=== PATIENT | male | born 1970 | race American Indian/Alaskan Native ===

== ENCOUNTER 2019-04-02 09:57 | Inpatient (IN) | payer SELFPAY ==
[2019-04-02] MEDS ORDERED: MORPHINE IV ONE (10:35)
[2019-04-02] MEDS ORDERED: NACL 0.9% 1000 ML 1,000 ML IV ONE (10:35)
[2019-04-02] MEDS ORDERED: PROTONIX IV ONE (10:35)
[2019-04-02] MEDS ORDERED: ZOFRAN IV ONE (10:35)
--- NOTE | 2019-04-02 10:39 | Emergency Department Report ---
ED Abdominal Pain HPI - General Chief Complaint: Abdominal Pain Stated Complaint: ABD PAIN Time Seen by Provider: 04/02/19 10:27 Source: patient Mode of arrival: Stretcher Limitations: No Limitations - History of Present Illness Initial Comments: 48-year-old male with upper quadrant abdominal pain since Tuesday. He stated it was postprandial on Tuesday. On Tuesday the pain improved. However this morning he was afraid to eat again as this exacerbated his pain. He did vomit. He states the pain is sharp and essentially in the left upper quadrant of the abdomen. He has not had pain like this before. He does drink alcohol but does not associate the pain with that. He's had no fever or chills. He states this had some diarrhea. Review of previous records indicates that the patient had a left heart cath with findings of a completely occluded RCA. He does have a dyslipidemia. He takes medicine for that and hypertension. MD Complaint: abdominal pain -: Gradual, days(s) Location: LUQ Radiation: none Migration to: no migration Severity: moderate Quality: sharp Consistency: constant Improves With: nothing Worsens With: eating Associated Symptoms: nausea, vomiting, diarrhea. denies: fever, chills, constipation, dysuria, hematemesis, hematochezia, melena, hematuria, anorexia, syncope - Related Data Home Medications Medication Instructions Recorded Confirmed Last Taken Omeprazole [PriLOSEC] 20 mg PO QDAY 02/18/15 02/18/15 11/20/14 Previous Rx's Medication Instructions Recorded Last Taken Type Aspirin EC 81 mg PO QDAY tablet 02/20/15 Unknown Rx Metoprolol [Lopressor TAB] 0.5 tab PO BID #30 tablet 02/20/15 Unknown Rx Clopidogrel [Plavix] 75 mg PO QDAY #30 tablet 02/21/15 Unknown Rx Lisinopril/Hydrochlorothiazide 1 each PO DAILY #30 tablet 02/21/15 Unknown Rx [Zestoretic 10-12.5 mg] Pravastatin [Pravachol] 40 mg PO QHS #30 tablet 02/21/15 Unknown Rx Allergies Allergy/AdvReac Type Severity Reaction Status Date / Time No Known Allergies Allergy Unverified 02/18/15 06:59 ED Review of Systems ROS: Stated complaint: ABD PAIN Other details as noted in HPI Constitutional: denies: chills, fever Eyes: denies: eye pain, eye discharge, vision change ENT: denies: ear pain, throat pain Respiratory: denies: cough, shortness of breath, wheezing Cardiovascular: denies: chest pain, palpitations Endocrine: no symptoms reported Gastrointestinal: as per HPI, abdominal pain, nausea, vomiting, diarrhea Genitourinary: denies: urgency, dysuria Musculoskeletal: denies: back pain, joint swelling, arthralgia Skin: denies: rash, lesions Neurological: denies: headache, weakness, paresthesias Psychiatric: denies: anxiety, depression Hematological/Lymphatic: denies: easy bleeding, easy bruising ED Past Medical Hx - Past Medical History Previous Medical History?: Yes Hx Hypertension: Yes Hx Congestive Heart Failure: No Hx Diabetes: No Hx GERD: Yes Hx Asthma: No Hx COPD: No - Surgical History Past Surgical History?: No - Social History Smoking Status: Current Every Day Smoker Substance Use Type: Alcohol - Medications Home Medications: Home Medications Medication Instructions Recorded Confirmed Last Taken Type Omeprazole [PriLOSEC] 20 mg PO QDAY 02/18/15 02/18/15 11/20/14 History Aspirin EC 81 mg PO QDAY tablet 02/20/15 Unknown Rx Metoprolol [Lopressor TAB] 0.5 tab PO BID #30 tablet 02/20/15 Unknown Rx Clopidogrel [Plavix] 75 mg PO QDAY #30 tablet 02/21/15 Unknown Rx Lisinopril/Hydrochlorothiazide 1 each PO DAILY #30 tablet 02/21/15 Unknown Rx [Zestoretic 10-12.5 mg] Pravastatin [Pravachol] 40 mg PO QHS #30 tablet 02/21/15 Unknown Rx ED Physical Exam - General Limitations: No Limitations General appearance: alert, other (looks uncomfortable) - Head Head exam: Present: atraumatic, normocephalic - Eye Eye exam: Present: normal appearance, PERRL. Absent: scleral icterus - ENT ENT exam: Present: mucous membranes moist - Neck Neck exam: Present: normal inspection - Respiratory Respiratory exam: Present: normal lung sounds bilaterally. Absent: respiratory distress - Cardiovascular Cardiovascular Exam: Present: regular rate, normal rhythm. Absent: systolic murmur, diastolic murmur, rubs, gallop - GI/Abdominal GI/Abdominal exam: Present: soft, tenderness (mildly in the left upper quadrant), normal bowel sounds. Absent: distended, guarding, rebound, rigid, organomegaly, mass, bruit, pulsatile mass, hernia - Rectal Rectal exam: Present: deferred - Extremities Exam Extremities exam: Present: normal inspection - Back Exam Back exam: Present: normal inspection - Neurological Exam Neurological exam: Present: alert, oriented X3, CN II-XII intact. Absent: motor sensory deficit - Psychiatric Psychiatric exam: Present: normal affect, normal mood - Skin Skin exam: Present: warm, dry, intact, normal color. Absent: rash ED Course Vital Signs 04/02/19 10:13 Temperature 98.0 F Pulse Rate 94 H Respiratory 18 Rate Blood Pressure 125/80 O2 Sat by Pulse 98 Oximetry ED Medical Decision Making - Lab Data Result diagrams: 04/02/19 10:30 04/02/19 10:30 Laboratory Results - last 24 hr 04/02/19 04/02/19 10:30 10:30 WBC 6.5 RBC 4.12 Hgb 14.3 Hct 40.7 MCV 99 H MCH 35 H MCHC 35 H RDW 12.2 L Plt Count 227 Lymph % (Auto) 8.2 L [place] % (Auto) 11.0 H Eos % (Auto) 0.8 Baso % (Auto) 0.4 Lymph # 0.5 L [place] # 0.7 Eos # 0.1 Baso # 0.0 Seg Neutrophils % 79.6 H Seg Neutrophils # 5.2 Sodium 132 L Potassium 3.5 L Chloride 91.3 L Carbon Dioxide 24 Anion Gap 20 BUN 15 Creatinine 0.9 Estimated GFR > 60 BUN/Creatinine Ratio 17 Glucose 125 H Calcium 9.6 Magnesium 1.70 Total Bilirubin 1.30 H Direct Bilirubin 0.4 H Indirect Bilirubin 0.9 AST 152 H ALT 74 H Alkaline Phosphatase 65 Troponin T < 0.010 Total Protein 7.7 Albumin 4.2 Albumin/Globulin Ratio 1.2 Lipase 1275 H - EKG Data -: EKG Interpreted by Mo EKG shows normal: sinus rhythm, axis, intervals, QRS complexes, ST-T waves (nonspecific inferior changes) Rate: normal - EKG Data Interpretation: nonspecific ST-T wave walt - Radiology Data Radiology results: pending (CT is pending) Critical care attestation.: If time is entered above; I have spent that time in minutes in the direct care of this critically ill patient, excluding procedure time. ED Disposition Clinical Impression: Acute pancreatitis Qualifiers: Pancreatitis type: unspecified pancreatitis type Acute pancreatitis complication: unspecified Qualified Code(s): K85.90 - Acute pancreatitis without necrosis or infection, unspecified Disposition: 09 OP ADMIT IP TO THIS HOSP Is pt being admited?: Yes Does the pt Need Aspirin: No Condition: Stable Referrals: GABBIE DAHL MD [Primary Care Provider] - 3-5 Days Time of Disposition: 12:03
[2019-04-02 10:56] LABS: Basophils % (Auto) 0.4 % (0.0-1.8); Eosinophils # (Auto) 0.1 K/mm3 (0.0-0.4); Eosinophils % (Auto) 0.8 % (0.0-4.3); Hematocrit 40.7 % (35.5-45.6); Hemoglobin 14.3 gm/dl (11.8-15.2); Lymphocytes # (Auto) 0.5 K/mm3 (1.2-5.4); Lymphocytes % (Auto) 8.2 % (13.4-35.0); Mean Corpuscular HGB Conc 35 % (32-34); Mean Corpuscular Volume 99 fl (84-94); Monocytes # (Auto) 0.7 K/mm3 (0.0-0.8); Platelet Count 227 K/mm3 (140-440); Red Blood Count 4.12 M/mm3 (3.65-5.03); Red Cell Distribution Width 12.2 % (13.2-15.2)
[2019-04-02 11:14] LABS: Alanine Aminotransferase 74 units/L (7-56); Albumin 4.2 g/dL (3.9-5); BUN/Creatinine Ratio 17; Bilirubin,Direct 0.4 mg/dL (0-0.2); Blood Urea Nitrogen 15 mg/dL (9-20); Calcium 9.6 mg/dL (8.4-10.2); Hemolysis Index 26
[2019-04-02] MEDS ORDERED: DILAUDID IV ONE (11:46)
[2019-04-02] MEDS ORDERED: NACL 0.9% 1000 ML 2,000 ML IV ONE (12:13)
[2019-04-02] MEDS ORDERED: ZOFRAN IV PRN (12:45)
[2019-04-02] MEDS ORDERED: TYLENOL PO PRN (12:45)
[2019-04-02] MEDS ORDERED: SODIUM CHLORIDE FLUSH SYRINGE 10 ML IV PRN (12:45)
[2019-04-02] MEDS ORDERED: PROVENTIL IH PRN (12:45)
--- NOTE | 2019-04-02 12:49 | History and Physical Report ---
History of Present Illness Chief complaint: My stomach hurts History of present illness: 48 YO Male with Obesity, Nicotine Dependence, ETOH Dependence, HTN, HLD, CAD on DAPT presents to ED for evaluation. Pt states that he has experienced pain his abdomen over the past 2 days. Pt states that pain is 9/10, constant, worsened with eating, localized to the LUQ, nonradiating. Pt acknowledges ETOH use with has last drink several days ago. Pt acknowledges nausea, multiple episodes of vomiting. EMS notified, and uopn arrival the patient was found to be in distress and transported to [facility]. Pt seen and evaluated in ED and found to have Acute Pancreatitis with intractible nausea and vomiting, and inability to tolerate or al diet. Pt admitted to medical floor, and treated with IVF resuscitation therapy and bowel rest. Pt denies fever, chills, CP, Palpitations, trauma, decreased exercise tolerance, unilateral leg swelling, calf pain, productive cough, BRBPR, skin rash, or recent ill contacts. Past History Past Medical History: CAD, hypertension, hyperlipidemia Past Surgical History: No surgical history, Other (reviewed) Social history: , lives with family, smoking, alcohol abuse Family history: hypertension Medications and Allergies Allergies Allergy/AdvReac Type Severity Reaction Status Date / Time No Known Allergies Allergy Unverified 02/18/15 06:59 Home Medications Medication Instructions Recorded Confirmed Last Taken Type Aspirin EC 81 mg PO QDAY tablet 02/20/15 04/02/19 Unknown Rx Atorvastatin [Lipitor Tab] 80 mg PO QHS 04/02/19 04/02/19 Unknown History Labetalol HCl [Labetalol 300mg TAB] 300 mg PO BID 04/02/19 04/02/19 Unknown History Telmisartan/Hydrochlorothiazid 1 each PO QDAY 04/02/19 04/02/19 Unknown History [Telmisartan-Hctz 80-25 mg Tab] Active Meds: Active Medications Acetaminophen (Tylenol) 650 mg PO Q4H PRN PRN Reason: Pain MILD(1-3)/Fever >100.5/SON Albuterol (Proventil) 2.5 mg IH Q4HRT PRN PRN Reason: Shortness Of Breath Aspirin (Halfprin Ec) 81 mg PO QDAY MICHELLE Clopidogrel Bisulfate (Plavix) 75 mg PO QDAY MICHELLE Famotidine (Pepcid) 20 mg IV BID MICHELLE Hydromorphone HCl (Dilaudid) 0.25 mg IV Q3H PRN PRN Reason: Pain, Moderate (4-6) Sodium Chloride (Nacl 0.9% 1000 Ml) 1,000 mls @ 125 mls/hr IV ONCE ONE Stop: 04/02/19 18:34 Last Admin: 04/02/19 10:46 Dose: 125 mls/hr Documented by: Sodium Chloride (Nacl 0.9% 1000 Ml) 1,000 mls @ 125 mls/hr IV DIRECT MICHELLE Sodium Chloride (Nacl 0.9% 1000 Ml) 2,000 mls @ 999 mls/hr IV BOLUS ONE Stop: 04/02/19 14:13 Last Admin: 04/02/19 12:39 Dose: 999 mls/hr Documented by: Metoprolol Tartrate (Lopressor) mg PO BID [facility], [facility] Miscellaneous Medication (Lisinopril/Hydrochlorothiazide [Zestoretic 10-12.5 Mg]) 1 each PO DAILY FOR[facility], [facility]1983 Ondansetron HCl (Zofran) 4 mg IV Q8H PRN PRN Reason: Nausea And Vomiting Pravastatin Sodium (Pravachol) 40 mg PO QHS [facility], [facility]–1983 Sodium Chloride (Sodium Chloride Flush Syringe 10 Ml) 10 ml IV BID [facility]1983 Sodium Chloride (Sodium Chloride Flush Syringe 10 Ml) 10 ml IV PRN PRN PRN Reason: LINE FLUSH Review of Systems Constitutional: no weight loss, no weight gain, no fever, no chills Ears, nose, mouth and throat: no ear pain, no ear discharge, no tinnitis, no decreased hearing, no nose pain, no nasal congestion Cardiovascular: no chest pain, no orthopnea, no palpitations, no rapid/irregular heart beat, no edema Respiratory: no cough, no cough with sputum, no excessive sputum, no hemoptysis Gastrointestinal: abdominal pain, nausea, vomiting, no early satiety Genitourinary Male: no hematuria, no flank pain, no discharge, no urinary frequency, no urinary hesitancy Rectal: no pain, no incontinence, no bleeding Musculoskeletal: no neck stiffness, no shooting arm pain, no arm numbness/tingling, no low back pain Integumentary: no rash, no pruritis, no redness, no sores, no wounds, no jaundice Neurological: no transient paralysis, no paralysis, no weakness, no parathesias, no numbness, no syncope Psychiatric: no anxiety, no memory loss, no sleep disturbances, no insomnia, no change in libido, no disorientation Endocrine: no cold intolerance, no heat intolerance, no polyphagia, no excessive thirst, no polydipsia, no nocturia, no flushing Hematologic/Lymphatic: no easy bruising, no easy bleeding, no lymphadenopathy Allergic/Immunologic: no urticaria, no allergic rhinitis, no wheezing, no persistent infections, no anaphylaxis Exam - Constitutional Vitals: Temp Pulse Resp BP Pulse Ox 98.0 F 94 H 18 125/80 99 04/02/19 10:13 04/02/19 10:13 04/02/19 10:13 04/02/19 10:13 04/02/19 10:13 General appearance: Present: mild distress - EENT Eyes: Present: PERRL ENT: hearing intact, clear oral mucosa - Neck Neck: Present: supple, normal ROM - Respiratory Respiratory effort: normal Respiratory: bilateral: CTA - Cardiovascular Heart Sounds: Present: S1 & S2. Absent: rub, click - Extremities Extremities: pulses symmetrical, No edema Peripheral Pulses: within normal limits - Abdominal General gastrointestinal: Present: soft, non-tender, non-distended, normal bowel sounds Male genitourinary: Present: normal - Integumentary Integumentary: Present: clear, warm, dry - Musculoskeletal Musculoskeletal: gait normal, strength equal bilaterally - Psychiatric Psychiatric: appropriate mood/affect, intact judgment & insight - Neurologic Neurologic: CNII-XII intact, moves all extremities Results - Labs CBC & Chem 7: 04/02/19 10:30 04/02/19 10:30 Labs: Abnormal lab results 04/02/19 04/02/19 Range/Units 10:30 10:30 MCV 99 H (84-94) fl MCH 35 H (28-32) pg MCHC 35 H (32-34) % RDW 12.2 L (13.2-15.2) % Lymph % (Auto) 8.2 L (13.4-35.0) % [place] % (Auto) 11.0 H (0.0-7.3) % Lymph # 0.5 L (1.2-5.4) K/mm3 Seg Neutrophils % 79.6 H (40.0-70.0) % Sodium 132 L (137-145) mmol/L Potassium 3.5 L (3.6-5.0) mmol/L Chloride 91.3 L (98-107) mmol/L Glucose 125 H (75-100) mg/dL Total Bilirubin 1.30 H (0.1-1.2) mg/dL Direct Bilirubin 0.4 H (0-0.2) mg/dL AST 152 H (5-40) units/L ALT 74 H (7-56) units/L Lipase 1275 H (13-60) units/L Assessment and Plan - Patient Problems (1) Acute pancreatitis Current Visit: Yes Status: Acute Qualifiers: Pancreatitis type: unspecified pancreatitis type Acute pancreatitis complication: unspecified Qualified Code(s): K85.90 - Acute pancreatitis without necrosis or infection, unspecified Plan to address problem: Admit to medical floor, CT Abdomen/Pelvis, IVF resuscitation therapy, bowel rest, pain control with Dilaudid, NPO overnight, repeat CT abdomen if worsening symptoms, lipase, repeat lipase in AM. (2) Nicotine dependence unspecified, with withdrawal Current Visit: Yes Status: Acute Qualifiers: Nicotine product type: cigarettes Qualified Code(s): F17.213 - Nicotine dependence, cigarettes, with withdrawal Plan to address problem: Smoking cessation counseling:+15ming, supportive care. (3) CAD (coronary artery disease) Current Visit: Yes Status: Acute Qualifiers: Associated angina: without angina Plan to address problem: risk factor reduction therapy, statin therapy, DAPT, low cholesterol diet, outpatient f/u with PCP (4) Alcohol abuse Current Visit: No Status: Chronic Plan to address problem: ETOH cessation counseling:+15 min, outpatient AA meeting (5) Obesity (BMI 30.0-34.9) Current Visit: Yes Status: Acute Plan to address problem: Balanced diet, increased physical activity at discharge, (6) DVT prophylaxis Current Visit: Yes Status: Acute Plan to address problem: SCD to BLE while in bed, Pt ambulating without difficulty
[2019-04-02] MEDS: DILAUDID IV PRN ×4 (13:39→23:08)
[2019-04-02] MEDS ORDERED: DILAUDID ONE (13:44)
[2019-04-02] MEDS ORDERED: APRESOLINE IV PRN (14:05)
[2019-04-02] MEDS: NACL 0.9% 1000 ML 1,000 ML IV SCH ×2 (14:22→23:08)
--- NOTE | 2019-04-02 21:50 | Cat Scan Report ---
CT abdomen pelvis w con INDICATION: abd pain, pancreatitis. TECHNIQUE: All CT scans at this location are performed using CT dose reduction for ALARA by means of automated e xposure control. COMPARISON: None available. FINDINGS: Lung bases are clear of acute disease. There is diffuse inflammatory change in and around the entire pancreas, consistent with acute pancreatitis. Small amount of fluid tracks down both paracolic spaces . Liver, gallbladder, spleen, kidneys and adrenals are intrinsically unremarkable. Abdominal aorta is n ormal in size. Pelvis Small to moderate free fluid from the acute pancreatitis. Urinary bladder and distal ureters are nega tive. Appendix cannot be identified. Deformity of the symphysis pubis, possibly posttraumatic. No acute skeletal lesions. IMPRESSION: 1. Acute pancreatitis. Signer Name: Casimiro Borden MD Signed: 04/02/2019 9:45 PM Workstation Name: [id number]
[2019-04-02] MEDS: SODIUM CHLORIDE FLUSH SYRINGE 10 ML IV SCH (21:53)
[2019-04-02] MEDS: PEPCID IV SCH (21:53)
[2019-04-02] MEDS ORDERED: LOPRESSOR PO SCH (22:00)
[2019-04-02] MEDS ORDERED: NON-FORMULARY (Atorvastatin [Lipitor] 80 MG) PO SCH (22:00)
[2019-04-02] MEDS ORDERED: PRAVACHOL PO SCH (22:00)
[2019-04-03] MEDS: DILAUDID IV PRN ×6 (04:40→23:27)
[2019-04-03 05:55] LABS: BUN/Creatinine Ratio 13; Blood Urea Nitrogen 9 mg/dL (9-20); Calcium 8.9 mg/dL (8.4-10.2); Hemolysis Index 56
[2019-04-03] MEDS: NACL 0.9% 1000 ML 1,000 ML IV SCH ×4 (06:33→23:18)
[2019-04-03] MEDS: PLAVIX PO SCH (09:13)
[2019-04-03] MEDS: HALFPRIN EC PO SCH (09:13)
[2019-04-03] MEDS: SODIUM CHLORIDE FLUSH SYRINGE 10 ML IV SCH ×2 (09:14→22:23)
[2019-04-03] MEDS: PEPCID IV SCH ×2 (09:14→22:23)
[2019-04-03] MEDS ORDERED: HCTZ PO SCH ×2 (10:00)
[2019-04-03] MEDS ORDERED: HYDROCHLOROTHIAZID PO SCH (10:00)
[2019-04-03] MEDS ORDERED: TELMISARTAN PO SCH (10:00)
[2019-04-03] MEDS ORDERED: LISINOPRIL PO SCH (10:00)
[2019-04-03] MEDS ORDERED: COZAAR PO SCH (10:00)
[2019-04-03] MEDS ORDERED: HYDROCHLOROTHIAZIDE PO SCH (10:00)
[2019-04-03] MEDS ORDERED: ZESTRIL PO SCH (10:00)
--- NOTE | 2019-04-03 13:53 | Progress Note ---
Assessment and Plan Assessment and plan: Acute pancreatitis - due to alcohol abuse - Patient's abdominal pain is getting better - Started on clear liquid diet and advance as tolerated - We will trend lipase Hypertension - We'll resume home medications DVT/GI prophylaxis Disposition; discharged the patient once her pain is controlled and diet is advanced. History Interval history: Patient was seen and evaluated this morning, patient said abdominal pain, nausea and vomiting is getting better. Hospitalist Physical - Physical exam Narrative exam: Not in cardiopulmonary distress. The patient is obese. Vital signs as documented. Head exam is unremarkable. No scleral icterus . Neck is without jugular venous distension, thyromegaly, or carotid bruits. Lungs are clear to auscultation. Cardiac exam reveals regular rate and Rhythm. Abdominal exam reveals mild right upper quadrant tenderness. Extremities are nonedematous and both femoral and pedal pulses are normal. [address] [address] [employer]: Alert and oriented 3. No focal weakness. - Constitutional Vitals: Temp Pulse Resp BP Pulse Ox 98.0 F 127 H 18 143/87 98 04/03/19 11:46 04/03/19 12:04 04/03/19 11:46 04/03/19 12:04 04/03/19 11:46 General appearance: Present: mild distress Results - Labs CBC & Chem 7: 04/02/19 10:30 04/03/19 05:03 Labs: Laboratory Last Values WBC 6.5 K/mm3 (4.5-11.0) 04/02/19 10:30 RBC 4.12 M/mm3 (3.65-5.03) 04/02/19 10:30 Hgb 14.3 gm/dl (11.8-15.2) 04/02/19 10:30 Hct 40.7 % (35.5-45.6) 04/02/19 10:30 MCV 99 fl (84-94) H 04/02/19 10:30 MCH 35 pg (28-32) H 04/02/19 10:30 MCHC 35 % (32-34) H 04/02/19 10:30 RDW 12.2 % (13.2-15.2) L 04/02/19 10:30 Plt Count 227 K/mm3 (140-440) 04/02/19 10:30 Lymph % (Auto) 8.2 % (13.4-35.0) L 04/02/19 10:30 [place] % (Auto) 11.0 % (0.0-7.3) H 04/02/19 10:30 Eos % (Auto) 0.8 % (0.0-4.3) 04/02/19 10:30 Baso % (Auto) 0.4 % (0.0-1.8) 04/02/19 10:30 Lymph # 0.5 K/mm3 (1.2-5.4) L 04/02/19 10:30 [place] # 0.7 K/mm3 (0.0-0.8) 04/02/19 10:30 Eos # 0.1 K/mm3 (0.0-0.4) 04/02/19 10:30 Baso # 0.0 K/mm3 (0.0-0.1) 04/02/19 10:30 Seg Neutrophils % 79.6 % (40.0-70.0) H 04/02/19 10:30 Seg Neutrophils # 5.2 K/mm3 (1.8-7.7) 04/02/19 10:30 Sodium 133 mmol/L (137-145) L 04/03/19 05:03 Potassium 3.9 mmol/L (3.6-5.0) 04/03/19 05:03 Chloride 98.4 mmol/L (98-107) 04/03/19 05:03 Carbon Dioxide 22 mmol/L (22-30) 04/03/19 05:03 17 mmol/L 04/03/19 05:03 BUN 9 mg/dL (9-20) 04/03/19 05:03 0.7 mg/dL (0.8-1.5) L 04/03/19 05:03 Estimated GFR > 60 ml/min 04/03/19 05:03 13 % 04/03/19 05:03 Glucose 106 mg/dL (75-100) H 04/03/19 05:03 Calcium 8.9 mg/dL (8.4-10.2) 04/03/19 05:03 Magnesium 1.70 mg/dL (1.7-2.3) 04/02/19 10:30 1.30 mg/dL (0.1-1.2) H 04/02/19 10:30 0.4 mg/dL (0-0.2) H 04/02/19 10:30 0.9 mg/dL 04/02/19 10:30 AST 152 units/L (5-40) H 04/02/19 10:30 ALT 74 units/L (7-56) H 04/02/19 10:30 65 units/L (35-129) 04/02/19 10:30 < 0.010 ng/mL (0.00-0.029) 04/02/19 10:30 7.7 g/dL (6.3-8.2) 04/02/19 10:30 4.2 g/dL (3.9-5) 04/02/19 10:30 1.2 % 04/02/19 10:30 1117 units/L (13-60) H 04/03/19 05:03 Plasma/Serum Alcohol < 0.01 % (0-0.07) 04/02/19 12:35 Active Medications - Current Medications Current Medications: Generic Name Dose Route Start Last Admin Trade Name Freq PRN Reason Stop Dose Admin Acetaminophen 650 mg 04/02/19 12:45 Tylenol PO Q4H PRN Pain MILD(1-3)/Fever >100.5/SON Albuterol 2.5 mg 04/02/19 12:45 Proventil IH Q4HRT PRN Shortness Of Breath Aspirin 81 mg 04/03/19 10:00 04/03/19 09:13 Halfprin Ec PO 81 mg QDAY MICHELLE Administration Atorvastatin Calcium 80 mg 04/02/19 22:00 04/02/19 21:52 Lipitor PO 80 mg QHS MICHELLE Administration Clopidogrel Bisulfate 75 mg 04/03/19 10:00 04/03/19 09:13 Plavix PO 75 mg QDAY MICHELLE Administration Famotidine 20 mg 04/02/19 22:00 04/03/19 09:14 Pepcid IV 20 mg BID MICHELLE Administration Hydralazine HCl 10 mg 04/02/19 14:05 04/02/19 15:16 Apresoline IV 10 mg Q6HR PRN Administration HTN SBP>150 Hydrochlorothiazide 25 mg 04/03/19 10:00 04/03/19 12:04 Hctz PO 25 mg QDAY MICHELLE Administration Hydromorphone HCl 0.25 mg 04/02/19 12:45 04/03/19 12:08 Dilaudid IV 0.25 mg Q3H PRN Administration Pain, Moderate (4-6) Sodium Chloride 1,000 mls @ 125 mls/hr 04/02/19 13:00 04/03/19 06:33 Nacl 0.9% 1000 Ml IV 125 mls/hr DIRECT MICHELLE Administration Losartan Potassium 50 mg 04/03/19 10:00 04/03/19 09:12 Cozaar PO 50 mg QDAY MICHELLE Administration Ondansetron HCl 4 mg 04/02/19 12:45 Zofran IV Q8H PRN Nausea And Vomiting Sodium Chloride 10 ml 04/02/19 22:00 04/03/19 09:14 Sodium Chloride Flush Syringe 10 Ml IV 10 ml BID MICHELLE Administration Sodium Chloride 10 ml 04/02/19 12:45 Sodium Chloride Flush Syringe 10 Ml IV PRN PRN LINE FLUSH
[2019-04-03] MEDS ORDERED: NORMODYNE PO SCH (14:30)
[2019-04-03] MEDS ORDERED: NACL 0.9% 500 ML 500 ML IV ONE (17:33)
[2019-04-03] MEDS: HABITROL TD SCH (18:18)
[2019-04-03] MEDS ORDERED: NON-FORMULARY (Labetalol Hcl [Labetalol 300mg Tab] 300 MG) PO SCH (22:00)
[2019-04-04] MEDS: NACL 0.9% 1000 ML 1,000 ML IV SCH ×3 (06:32→23:39)
[2019-04-04] MEDS: DILAUDID IV PRN ×5 (08:02→23:40)
[2019-04-04] MEDS ORDERED: DULCOLAX PO PRN (09:12)
[2019-04-04] MEDS: PLAVIX PO SCH (10:21)
[2019-04-04] MEDS: HALFPRIN EC PO SCH (10:21)
[2019-04-04] MEDS: PEPCID IV SCH ×2 (10:21→21:09)
[2019-04-04] MEDS: HABITROL TD SCH (10:22)
[2019-04-04] MEDS: SODIUM CHLORIDE FLUSH SYRINGE 10 ML IV SCH ×2 (10:22→21:10)
--- NOTE | 2019-04-04 13:44 | Progress Note ---
Assessment and Plan Assessment and plan: Acute pancreatitis - due to alcohol abuse - Lipase trended down to 776 - Patient's abdominal pain is getting better - Started on clear liquid diet and advance as tolerated - Extensively consulted about cessation of alcohol Hypertension, currently hypotensive -Currently hypotensive and had his blood pressure medications -Yesterday he was hypotensive and required about 500 mL of bolus -Continue his IV fluids Constipation - Dulcolex DVT/GI prophylaxis Disposition; discharged the patient once her pain is controlled and diet is advanced. History Interval history: Patient was seen and evaluated this morning, patient said abdominal pain, nausea and vomiting is getting better. C/O constipation. Hospitalist Physical - Physical exam Narrative exam: Not in cardiopulmonary distress. The patient is obese. Vital signs as documented. Head exam is unremarkable. No scleral icterus . Neck is without jugular venous distension, thyromegaly, or carotid bruits. Lungs are clear to auscultation. Cardiac exam reveals regular rate and Rhythm. Abdominal exam reveals mild right upper quadrant tenderness. Extremities are nonedematous and both femoral and pedal pulses are normal. 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 No focal weakness. - Constitutional Vitals: Temp Pulse Resp BP Pulse Ox 99.2 F 108 H 18 121/69 97 04/04/19 05:07 04/04/19 05:07 04/04/19 08:32 04/04/19 05:07 04/04/19 05:07 General appearance: Present: mild distress Results - Labs CBC & Chem 7: 04/02/19 10:30 04/03/19 05:03 Labs: Laboratory Last Values WBC 6.5 K/mm3 (4.5-11.0) 04/02/19 10:30 RBC 4.12 M/mm3 (3.65-5.03) 04/02/19 10:30 Hgb 14.3 gm/dl (11.8-15.2) 04/02/19 10:30 Hct 40.7 % (35.5-45.6) 04/02/19 10:30 MCV 99 fl (84-94) H 04/02/19 10:30 MCH 35 pg (28-32) H 04/02/19 10:30 MCHC 35 % (32-34) H 04/02/19 10:30 RDW 12.2 % (13.2-15.2) L 04/02/19 10:30 Plt Count 227 K/mm3 (140-440) 04/02/19 10:30 Lymph % (Auto) 8.2 % (13.4-35.0) L 04/02/19 10:30 [place] % (Auto) 11.0 % (0.0-7.3) H 04/02/19 10:30 Eos % (Auto) 0.8 % (0.0-4.3) 04/02/19 10:30 Baso % (Auto) 0.4 % (0.0-1.8) 04/02/19 10:30 Lymph # 0.5 K/mm3 (1.2-5.4) L 04/02/19 10:30 [place] # 0.7 K/mm3 (0.0-0.8) 04/02/19 10:30 Eos # 0.1 K/mm3 (0.0-0.4) 04/02/19 10:30 Baso # 0.0 K/mm3 (0.0-0.1) 04/02/19 10:30 Seg Neutrophils % 79.6 % (40.0-70.0) H 04/02/19 10:30 Seg Neutrophils # 5.2 K/mm3 (1.8-7.7) 04/02/19 10:30 Sodium 133 mmol/L (137-145) L 04/03/19 05:03 Potassium 3.9 mmol/L (3.6-5.0) 04/03/19 05:03 Chloride 98.4 mmol/L (98-107) 04/03/19 05:03 Carbon Dioxide 22 mmol/L (22-30) 04/03/19 05:03 17 mmol/L 04/03/19 05:03 BUN 9 mg/dL (9-20) 04/03/19 05:03 0.7 mg/dL (0.8-1.5) L 04/03/19 05:03 Estimated GFR > 60 ml/min 04/03/19 05:03 13 % 04/03/19 05:03 Glucose 106 mg/dL (75-100) H 04/03/19 05:03 Calcium 8.9 mg/dL (8.4-10.2) 04/03/19 05:03 Magnesium 1.70 mg/dL (1.7-2.3) 04/02/19 10:30 1.30 mg/dL (0.1-1.2) H 04/02/19 10:30 0.4 mg/dL (0-0.2) H 04/02/19 10:30 0.9 mg/dL 04/02/19 10:30 AST 152 units/L (5-40) H 04/02/19 10:30 ALT 74 units/L (7-56) H 04/02/19 10:30 65 units/L (35-129) 04/02/19 10:30 < 0.010 ng/mL (0.00-0.029) 04/02/19 10:30 7.7 g/dL (6.3-8.2) 04/02/19 10:30 4.2 g/dL (3.9-5) 04/02/19 10:30 1.2 % 04/02/19 10:30 776 units/L (13-60) H 04/04/19 08:59 Plasma/Serum Alcohol < 0.01 % (0-0.07) 04/02/19 12:35 Active Medications - Current Medications Current Medications: Generic Name Dose Route Start Last Admin Trade Name Freq PRN Reason Stop Dose Admin Acetaminophen 650 mg 04/02/19 12:45 04/04/19 13:09 Tylenol PO 650 mg Q4H PRN Administration Pain MILD(1-3)/Fever >100.5/SON Albuterol 2.5 mg 04/02/19 12:45 Proventil IH Q4HRT PRN Shortness Of Breath Aspirin 81 mg 04/03/19 10:00 04/04/19 10:21 Halfprin Ec PO 81 mg QDAY MICHELLE Administration Atorvastatin Calcium 80 mg 04/02/19 22:00 04/03/19 22:23 Lipitor PO 80 mg QHS MICHELLE Administration Bisacodyl 10 mg 04/04/19 09:12 04/04/19 10:21 Dulcolax PO 10 mg QDAY PRN Administration Constipation Clopidogrel Bisulfate 75 mg 04/03/19 10:00 04/04/19 10:21 Plavix PO 75 mg QDAY MICHELLE Administration Famotidine 20 mg 04/02/19 22:00 04/04/19 10:21 Pepcid IV 20 mg BID MICHELLE Administration Hydralazine HCl 10 mg 04/02/19 14:05 04/02/19 15:16 Apresoline IV 10 mg Q6HR PRN Administration HTN SBP>150 Hydromorphone HCl 0.25 mg 04/02/19 12:45 04/04/19 13:13 Dilaudid IV 0.25 mg Q3H PRN Administration Pain, Moderate (4-6) Sodium Chloride 1,000 mls @ 125 mls/hr 04/02/19 13:00 04/04/19 06:32 Nacl 0.9% 1000 Ml IV 125 mls/hr DIRECT MICHELLE Administration Nicotine 21 mg 04/03/19 18:30 04/04/19 10:22 Habitrol TD 21 mg QDAY MICHELLE Administration Ondansetron HCl 4 mg 04/02/19 12:45 Zofran IV Q8H PRN Nausea And Vomiting Sodium Chloride 10 ml 04/02/19 22:00 04/04/19 10:22 Sodium Chloride Flush Syringe 10 Ml IV 10 ml BID MICHELLE Administration Sodium Chloride 10 ml 04/02/19 12:45 Sodium Chloride Flush Syringe 10 Ml IV PRN PRN LINE FLUSH Nutrition/Malnutrition Assess - Dietary Evaluation Nutrition/Malnutrition Findings: Nutrition Notes Start: 04/03/19 15:06 Freq: Status: Active Protocol: Document 04/03/19 15:06 (Rec: 04/03/19 15:15 [email or web address]) Nutrition Notes Need for Assessment generated from: [facility] Initial or Follow up Assessment Current Diagnosis Coronary Artery Disease, Hypertension,Hyperlipidemia Other Pertinent Diagnosis ETOH dependence, N/V, Acute pancreatitis Current Diet Full liquid Labs/Tests Reviewed Pertinent Medications Hydrochlorothiazide Height 5 ft 10 in Weight 99.79 kg Usual Body Weight 100 kg [place] Body Weight (kg) 75.45 BMI 31.5 Subjective/Other Information Screened for malnutrition. NPO in place earlier today. Full liquid diet ordered later today. 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 Stated that he has not had anything to eat here yet. Admitted to diarrhea. Stated UBW was 220 lbs 3 weeks ago. No temporal or orbital wasting . Percent of energy/protein needs met: 0%/0% Burn Absent Trauma Absent #1 Nutrition Diagnosis Inadequate oral intake Etiology ETOH dependence, acute pancreatitis As Evidenced by Signs and Symptoms pt on full liquid diet Is patient on ventilator? No Is Patient Ambulatory and/or Out of Bed Yes [facility] [ 2436.395 [id number]] Kcal/Kg value to use for calculation 19 Approximate Energy Requirements Using 1896 kcal/Kg Calculation Used for Recommendations Kcal/kg Additional Notes Protein Needs: 70-88g (0.8-1g/ kg 88 kg adjBW) Fluid Needs: 1 ml/kcal Nutrition Intervention Change Diet Order: Advanced diet when medically able Add Supplement/Snack (indicate name/kcal Ensure Clear 1 daily /protein ) Provides kCal: 240 Provides Protein (gm) 8 Goal #1 Diet advancement Anticipated Discharge Needs: Unable to determine at this time Follow-Up By: 04/06/19 Additional Comments Follow for PO and ONS intakes
[2019-04-05 06:05] VITALS: BP 125/75
[2019-04-05] MEDS: NACL 0.9% 1000 ML 1,000 ML IV SCH (06:16)
[2019-04-05] MEDS: DILAUDID IV PRN (06:16)
--- NOTE | 2019-04-05 09:48 | Discharge Summary ---
Providers - Providers Date of Admission: 04/02/19 12:45 Attending physician: KOKO HERRERA MD [facility] Reason for admission: acute pancreatitis Condition: Stable Pertinent studies: CT abdomen and pelvis; consistent with acute pancreatitis. Hospital course: 48 YO Male with Obesity, Nicotine Dependence, ETOH Dependence, HTN, HLD, CAD on DAPT presents to ED for evaluation. Pt states that he has experienced pain his abdomen over the past 2 days. Pt states that pain is 9/10, constant, worsened with eating, localized to the LUQ, nonradiating. Pt acknowledges ETOH use with has last drink several days ago. Pt acknowledges nausea, multiple episodes of vomiting. EMS notified, and uopn arrival the patient was found to be in distress and transported to [facility]. Pt seen and evaluated in ED and found to have Acute Pancreatitis with intractible nausea and vomiting, and inability to tolerate oral diet. Pt admitted to medical floor, and treated with IVF resuscitation therapy and bowel rest. Pt denies fever, chills, CP, Palpitations, trauma, decreased exercise tolerance, unilateral leg swelling, calf pain, productive cough, BRBPR, skin rash, or recent ill contacts. Patient was admitted to the floor for management of acute pancreatitis. Patient was treated with bowel rest, IV fluids, IV pain medicine. abdominal pain is getting better, lipase trended down. patient's blood pressure was on the low side of normal while he was in the hospital and I discontinued it advised the patient to check his BP and if getting high he can restart. I gave him a parameter and advised to follow with his PCP. patient was counselled extensively about cessation of alcohol. Disposition: - TO HOME OR SELFCARE Time spent for discharge: 32 minutes - Discharge Diagnoses (1) Acute pancreatitis Status: Acute Qualifiers: Pancreatitis type: unspecified pancreatitis type Acute pancreatitis complication: unspecified Qualified Code(s): K85.90 - Acute pancreatitis without necrosis or infection, unspecified (2) Nicotine dependence unspecified, with withdrawal Status: Acute Qualifiers: Nicotine product type: cigarettes Qualified Code(s): F17.213 - Nicotine dependence, cigarettes, with withdrawal (3) Obesity (BMI 30.0-34.9) Status: Acute (4) Alcohol abuse Status: Chronic (5) HTN (hypertension) Status: Chronic Core Measure Documentation - Palliative Care Palliative Care/ Comfort Measures: Not Applicable - Core Measures Any of the following diagnoses?: none Exam - Physical Exam Narrative exam: Not in cardiopulmonary distress. The patient is obese. Vital signs as documented. Head exam is unremarkable. No scleral icterus . Neck is without jugular venous distension, thyromegaly, or carotid bruits. Lungs are clear to auscultation. Cardiac exam reveals regular rate and Rhythm. Abdominal exam reveals mild right upper quadrant tenderness. Extremities are nonedematous and both femoral and pedal pulses are normal. MANAGER PROJECT MANAGEMENT: Alert and oriented 3. No focal weakness. - Constitutional Vitals: Temp Pulse Resp BP Pulse Ox 99.6 F 95 H 18 125/75 94 04/05/19 05:28 04/05/19 05:28 04/05/19 06:46 04/05/19 05:28 04/05/19 05:28 Plan Activity: no restrictions Weight Bearing Status: Full Weight Bearing Diet: low cholesterol, low salt Follow up with: GABBIE DAHL MD [Primary Care Provider] - 3-5 Days Prescriptions: Bisacodyl [Dulcolax] 10 mg PO DAILY PRN #12 tab PRN Reason: Constipation oxyCODONE /ACETAMINOPHEN [Percocet 5/325] 1 tab PO Q6HR PRN #14 tablet PRN Reason: Pain
[2019-04-05] MEDS: HABITROL TD SCH (10:30)
[2019-04-05] MEDS: PLAVIX PO SCH (10:30)
[2019-04-05] MEDS: HALFPRIN EC PO SCH (10:31)
[2019-04-05] MEDS: PEPCID IV SCH (10:31)
[2019-04-05] MEDS: SODIUM CHLORIDE FLUSH SYRINGE 10 ML IV SCH (10:31)
== END 2019-04-05 11:10 | disposition home or self-care (01) | DRG 439 ==
LOC: ED 09:57 → 3A 12:45
PROVIDERS: ADMIT Internal Medicine; ATTEND Internal Medicine
DX: K85.20 Alcohol induced acute pancreatitis without necrosis or infection (principal); F17.213 Nicotine dependence, cigarettes, with withdrawal; F10.20 Alcohol dependence, uncomplicated; E66.9 Obesity, unspecified; I10 Essential (primary) hypertension; I25.10 Atherosclerotic heart disease of native coronary artery without angina pectoris; K21.9 Gastro-esophageal reflux disease without esophagitis; Z68.34 Body mass index [BMI] 34.0-34.9, adult; Z71.41 Alcohol abuse counseling and surveillance of alcoholic; Z82.49 Family history of ischemic heart disease and other diseases of the circulatory system; Z79.82 Long term (current) use of aspirin; Z79.899 Other long term (current) drug therapy
CPT/HCPCS: 36415; 74177; 80048; 80076; 80320; 83690; 83735; 84484; 85025; 93005; 93010; 96361; 96374; 96375; 99406; G0378; A9270-GY; G0480; J0360; J1170; J2270; J2405; J7030; J7040; Q9967